=== PATIENT | male | born 1970 | race Caucasian/White ===

== ENCOUNTER 2020-05-20 07:55 | Inpatient (IN) | payer BC, OTHER ==
[~2020-05-20] VITALS: Ht 170.2 cm; Wt 90.3 kg
--- NOTE | ~2020-05-20 | O ---
[facility] [place] [address] OPERATIVE REPORT Name: GIBSONLOREDODELFINA Room #: 433-I ADM IN M.R.#: [id number] Admission: 05/20/20 Attend Phys: Joe Bermudez, Discharge: Date of : 70 Report #: [id number] THIS REPORT FOR: cc: FAM - No family physician/PCP Joe Bermudez MD ~ DATE OF SERVICE: 05/21/2020 PREOPERATIVE DIAGNOSIS: Ischiorectal abscess. POSTOPERATIVE DIAGNOSIS: Ischiorectal abscess. OPERATION: Incision and drainage of ischiorectal abscess. SURGEON: Joe Bermudez MD ANESTHESIA: General. ESTIMATED BLOOD LOSS: Minimal. SPECIMEN: None. DESCRIPTION OF PROCEDURE: After informed consent was obtained, the patient was brought to the operating room and placed supine. SCDs were placed and working, general anesthesia was induced. The patient was placed in the dorsal lithotomy position. The area was then prepped and draped in the usual sterile fashion. Digital rectal exam was performed. This did not demonstrate any masses. There was an area of fluctuance just posterior in the midline. This was incised. A small amount of pus was expressed. I did make another counter incision on the right side measuring approximately 2 mm. The area was then copiously irrigated with normal saline. It was packed with iodoform gauze. Sterile dressings were applied. COMPLICATIONS: None. DISPOSITION: The patient was taken to recovery in satisfactory condition. By: 0905 Joe Bermudez MD /shayan
[2020-05-20 08:02] VITALS: BP 127/81
[2020-05-20] MEDS ORDERED: NORVASC 2.5 MG2.5 M1 PO (08:06)
[2020-05-20] MEDS ORDERED: LIPITOR40 MG PO (08:06)
[2020-05-20] MEDS ORDERED: COLACE100 MG PO (08:06)
[2020-05-20] MEDS ORDERED: OMEPRAZOLE 20 M20 M1 PO (08:07)
[2020-05-20 08:50] LABS: ABSOLUTE NEUTROPHILS 7.8 thou/uL (1.4-8.2); BASOPHILS 0.3 % (0.0-2.0); EOSINOPHILS 0.5 % (0.0-3.0); HEMATOCRIT 45.2 % (42.0-52.0); HEMOGLOBIN 15.4 gm/dL (14.0-18.0); LYMPHOCYTES 15.4 % (24.0-44.0); MCH 29.8 pg (26.0-34.0); MCV 87.6 fL (80.0-100.0); MONOCYTES 7.9 % (1.0-8.0); PLATELET COUNT 213 thou/uL (150-400); POLYS 75.9 % (36.0-66.0); RBC 5.16 mil/uL (4.50-6.00); RDW 13.1 % (10.5-14.5); WBC 10.3 thou/uL (4.0-11.0)
[2020-05-20 09:10] LABS: CALCIUM 9.3 mg/dL (8.5-10.1); CREATININE 1.1 mg/dL (0.7-1.3); POTASSIUM 3.9 mmol/L (3.5-5.1)
[2020-05-20 09:16] LABS: ALBUMIN 4.2 g/dL (3.4-5.0); TOTAL BILIRUBIN 1.4 mg/dL (0.2-1.0)
[2020-05-20 11:18] VITALS: BP 129/76
[2020-05-20 13:28] VITALS: BP 105/64
--- NOTE | 2020-05-20 16:27 | NUR ---
Pt admitted to unit from ED. A&ox.4 Pain controlled with prn pain meds. Pt ambulated with steady gait. IV antibiotic infused. Pt will have surgery tomorrow 05/21. Familt at bedside. NPO after midnight. Call light within reach. Will continue to monitor.
[2020-05-20 17:05] VITALS: BP 112/70
[2020-05-20 19:15] VITALS: BP 105/68
--- NOTE | 2020-05-21 00:32 | NUR ---
ASSESSED AT START OF SHIFT. PT A&OX4. HYDROCODONE GIVEN FOR PAIN. PT NPO AT MIDNIGHT FOR SURGERY TOMORROW. URINAL AT BEDSIDE. NO FURTHER SIGNS OF DISCOMFORT. CALL LIGHT AT REACH AND WILL CONT TO MONITOR.
[2020-05-21 05:30] VITALS: BP 112/75
[2020-05-21 07:05] VITALS: BP 112/69
[2020-05-21 08:19] VITALS: BP 126/68
[2020-05-21] MEDS ORDERED: NORCO5 PO (09:00)
[2020-05-21 10:00] VITALS: BP 120/68
--- NOTE | 2020-05-21 10:57 | NUR ---
Assumed care of pt at 0700. Pt axo4. Underwent surgery today. Dressing c/d/i. Pain under control. Family at bedside. Pt will go home later today. Call light within reach. Will continue to monitor.
[2020-05-21 13:34] VITALS: BP 120/68
--- NOTE | 2020-05-21 14:48 | NUR ---
ASSUMED PT CARE AROUND 1400. PT ALERT X ORIENTED X 4. UP X SIRISHA. ON ROOM AIR. IV RT FA SALINE LOCKED. / DRESSING ON SURGERY SITE. PAIN OF 7 NOTIFEID AND PAIN MEDICINE GIVEN. PATIENT GETTING DISCHERGED TO HOME WITH SISTER AT 1500. DISCHARGE INSTRUCTIONS GIVEN.
== END 2020-05-21 15:31 | disposition home or self-care (01) | DRG 358 ==
LOC: ER 07:55 → 4S 11:02 → EROBS 11:02 → 4S 11:49
PROVIDERS: Emergency Medicine; ADMIT Surgery; ATTEND Surgery
PROC: 0J9B0ZZ Drainage of Perineum Subcutaneous Tissue and Fascia, Open Approach (ICD-10-PCS; principal; 2020-05-21)
DX: K61.39 Other ischiorectal abscess (principal); K21.9 Gastro-esophageal reflux disease without esophagitis; E78.00 Pure hypercholesterolemia, unspecified; I10 Essential (primary) hypertension; F17.210 Nicotine dependence, cigarettes, uncomplicated; Z79.899 Other long term (current) drug therapy
CPT/HCPCS: 10195; 50010; 50101; 50386; 62110; 62900; 70005